=== PATIENT | female | born 1990 | race Caucasian/White ===

== ENCOUNTER 2020-03-19 14:05 | Inpatient (IN) ==
[2020-03-19] MEDS ORDERED: traZODone 50 MG TABLET PO PRN (15:21)
[2020-03-19] MEDS ORDERED: Acetaminophen 325 MG TABLET PO PRN (15:21)
[2020-03-19] MEDS ORDERED: Mag Hydrox/Al Hydrox/Simeth 30 ML UDC PO PRN (15:21)
[2020-03-19] MEDS ORDERED: hydrOXYzine pamoate 25 MG CAPSULE PO PRN (15:21)
[2020-03-19] MEDS ORDERED: *HR* LORazepam 2 MG/ML VIAL IM PRN (15:21)
[2020-03-19] MEDS ORDERED: haloperidoL 5 MG TABLET PO PRN (15:21)
[2020-03-19] MEDS ORDERED: Haloperidol Lactate 5 MG/ML VIAL IM PRN (15:21)
[2020-03-19] MEDS ORDERED: *HR* LORazepam 1 MG TABLET PO PRN (15:21)
[2020-03-19] MEDS ORDERED: MOM Conc 10 ML UD.LIQ PO PRN (15:21)
[2020-03-20] MEDS ORDERED: ARIPiprazole 5 MG TABLET PO SCH ×2 (11:15→21:00)
[2020-03-20] MEDS: FLUoxetine HCl 10 MG CAPSULE PO SCH (12:16)
[2020-03-21] MEDS ORDERED: ARIPiprazole 10 MG TABLET PO SCH (09:00)
[2020-03-21] MEDS: FLUoxetine HCl 10 MG CAPSULE PO SCH (09:03)
[2020-03-21 09:26] VITALS: BP 140/102
== END 2020-03-21 13:10 | disposition home or self-care (01) ==
LOC: INTOOBSV 14:05 → 1ANU 14:05
PROVIDERS: ADMIT Psychiatry & Neurology Psychiatry; ATTEND Psychiatry & Neurology Psychiatry

== ENCOUNTER 2020-07-17 23:43 | Inpatient (IN) ==
[2020-07-17] MEDS ORDERED: cephALEXin 500 MG CAPSULE PO STA (23:48)
[2020-07-18] MEDS ORDERED: *HR* LORazepam 1 MG TABLET PO ONE (00:39)
[2020-07-18] MEDS ORDERED: *HR* LORazepam 1 MG TABLET PO PRN (00:55)
[2020-07-18] MEDS ORDERED: Ibuprofen 400 MG TABLET PO PRN (00:55)
[2020-07-18] MEDS ORDERED: MOM Conc 10 ML UD.LIQ PO PRN (00:55)
[2020-07-18] MEDS ORDERED: haloperidoL 5 MG TABLET PO PRN (00:55)
[2020-07-18] MEDS ORDERED: Mag Hydrox/Al Hydrox/Simeth 30 ML UDC PO PRN (00:55)
[2020-07-18] MEDS ORDERED: Haloperidol Lactate 5 MG/ML VIAL IM PRN (00:55)
[2020-07-18] MEDS ORDERED: *HR* LORazepam 2 MG/ML VIAL IM PRN (00:55)
[2020-07-18] MEDS: hydrOXYzine pamoate 25 MG CAPSULE PO PRN ×2 (02:07→21:54)
[2020-07-18 09:22] LABS: Estimated Average Glucose 103 mg/dl
[2020-07-18] MEDS: cephALEXin 500 MG CAPSULE PO SCH ×2 (10:12→21:54)
[2020-07-18] MEDS: FLUoxetine HCl 10 MG CAPSULE PO SCH (12:46)
[2020-07-18] MEDS ORDERED: ARIPiprazole 5 MG TABLET PO SCH (21:00)
[2020-07-18] MEDS: QUEtiapine Fumarate 25 MG TABLET PO PRN (21:54)
[2020-07-19] MEDS: cephALEXin 500 MG CAPSULE PO SCH ×2 (08:40→21:18)
[2020-07-19] MEDS: FLUoxetine HCl 10 MG CAPSULE PO SCH (08:40)
[2020-07-19] MEDS ORDERED: FLUoxetine HCl 10 MG CAPSULE PO ONE (11:00)
[2020-07-19] MEDS: ARIPiprazole 10 MG TABLET PO SCH (21:18)
[2020-07-19] MEDS: hydrOXYzine pamoate 25 MG CAPSULE PO PRN (21:18)
[2020-07-19] MEDS: QUEtiapine Fumarate 25 MG TABLET PO PRN (21:18)
[2020-07-20] MEDS: FLUoxetine 20 MG CAPSULE PO SCH (09:28)
[2020-07-20] MEDS: cephALEXin 500 MG CAPSULE PO SCH ×2 (09:28→20:14)
[2020-07-20] MEDS: QUEtiapine Fumarate 25 MG TABLET PO PRN (20:14)
[2020-07-20] MEDS: hydrOXYzine pamoate 25 MG CAPSULE PO PRN (20:14)
[2020-07-20] MEDS: ARIPiprazole 10 MG TABLET PO SCH (20:14)
[2020-07-21] MEDS: cephALEXin 500 MG CAPSULE PO SCH (08:51)
[2020-07-21] MEDS: FLUoxetine 20 MG CAPSULE PO SCH (08:51)
[2020-07-21 09:17] VITALS: BP 142/97
== END 2020-07-21 15:55 | disposition home or self-care (01) | DRG 751 ==
LOC: EMEROOARM 23:43 → 1ANU 07-18 00:51
PROVIDERS: ADMIT Psychiatry & Neurology Psychiatry; ATTEND Psychiatry & Neurology Psychiatry